=== PATIENT | female | born 1990 | race Caucasian/White ===

== ENCOUNTER 2023-10-18 06:19 | Day surgery (SDC) | payer OTHER, SELFPAY ==
[2023-10-18 12:30] VITALS: BMI 48.5
[2023-10-18 12:31] VITALS: BP 135/84; BMI 48.5
[2023-10-18 14:55] VITALS: BP 112/51
[2023-10-18 15:00] VITALS: BP 123/85
[2023-10-18 15:13] VITALS: BP 134/83
== END 2023-10-18 15:25 | disposition home or self-care (01) ==
LOC: SDS 06:19
PROVIDERS: ATTENDING PHYSICIAN Internal Medicine Gastroenterology; FAMILY PHYSICIAN Nurse Practitioner
DX: D50.9 Iron deficiency anemia, unspecified (principal); K57.30 Diverticulosis of large intestine without perforation or abscess without bleeding; K29.70 Gastritis, unspecified, without bleeding; K22.89 Other specified disease of esophagus; K44.9 Diaphragmatic hernia without obstruction or gangrene; K31.89 Other diseases of stomach and duodenum
CPT/HCPCS: 45380; 43239; 88305; 88342

== ENCOUNTER → 2024-07-24 15:02 | Outpatient (REF) | payer OTHER, SELFPAY | LOC: RAD 15:02 | PROVIDERS: ATTENDING PHYSICIAN Otolaryngology Otolaryngology/Facial Plastic Surgery | DX: H65.23 Chronic serous otitis media, bilateral (principal) | CPT/HCPCS: 70481; Q9967 ==